=== PATIENT | male | born 1975 | race Caucasian/White ===

== ENCOUNTER 2022-07-11 13:51 | Emergency (ER) | payer OTHER, SELFPAY ==
[2022-07-11 14:01] VITALS: PULSE 89; RESP 16; TEMP 36.7; O2SAT 98; BMI 37.5
--- NOTE | 2022-07-11 14:34 | CTR_ITS ---
PROCEDURE INFORMATION: Exam: CT Head Without Contrast Exam date and time: 07/11/2022 3:22 PM Age: 46 years old Clinical indication: Injury or trauma; Fall; Blunt trauma (contusions or hematomas); Injury details: Fell off ladder 5 ft. Landing on head and neck. C/O head, neck, back and leg pain x today. TECHNIQUE: Imaging protocol: Computed tomography of the head without contrast. Radiation optimization: All CT scans at this facility use at least one of these dose optimization techniques: automated exposure control; mA and/or kV adjustment per patient size (includes targeted exams where dose is matched to clinical indication); or iterative reconstruction. COMPARISON: No relevant prior studies available. RADIATION DOSE METRICS: Total DLP (mGy-cm): 1239 FINDINGS: Brain: Normal. No hemorrhage. Unremarkable white matter. No mass effect. Cerebral ventricles: No ventriculomegaly. Paranasal sinuses: Visualized sinuses are unremarkable. No fluid levels. Mastoid air cells: Visualized mastoid air cells are well aerated. Bones/joints: Unremarkable. No acute fracture. Soft tissues: Unremarkable. CT/CT head wo con* [id number] IMPRESSION: No acute intracranial abnormality.
--- NOTE | 2022-07-11 14:34 | CTR_ITS ---
PROCEDURE INFORMATION: Exam: CT Lumbar Spine Without Contrast Exam date and time: 07/11/2022 3:22 PM Age: 46 years old Clinical indication: Injury or trauma; Fall; Blunt trauma (contusions or hematomas); Additional info: Fall from ladder TECHNIQUE: Imaging protocol: Computed tomography of the lumbar spine without contrast. Radiation optimization: All CT scans at this facility use at least one of these dose optimization techniques: automated exposure control; mA and/or kV adjustment per patient size (includes targeted exams where dose is matched to clinical indication); or iterative reconstruction. COMPARISON: No relevant prior studies available. RADIATION DOSE METRICS: Total DLP (mGy-cm): 1132.4 FINDINGS: Bones/joints: Nondisplaced fracture of the right transverse process of L3. No additional fractures. Normal alignment. No significant disc protrusion. No severe spinal canal stenosis. Soft tissues: Unremarkable. CT/CT lumbar spine wo con* [id number] IMPRESSION: Nondisplaced fracture of the right transverse process of L3.
--- NOTE | 2022-07-11 14:34 | CTR_ITS ---
PROCEDURE INFORMATION: Exam: CT Cervical Spine Without Contrast Exam date and time: 07/11/2022 3:22 PM Age: 46 years old Clinical indication: Injury or trauma; Fall; Blunt trauma; Additional info: Fall off of ladder TECHNIQUE: Imaging protocol: Computed tomography of the cervical spine without contrast. Radiation optimization: All CT scans at this facility use at least one of these dose optimization techniques: automated exposure control; mA and/or kV adjustment per patient size (includes targeted exams where dose is matched to clinical indication); or iterative reconstruction. COMPARISON: No relevant prior studies available. RADIATION DOSE METRICS: Total DLP (mGy-cm): 310.2 FINDINGS: Bones/joints: No acute fracture. Normal alignment. No significant disc protrusion. No severe spinal canal stenosis. Lungs: Lung apices are normal. Soft tissues: Unremarkable. CT/CT cervical spin wo con* [id number] IMPRESSION: No acute findings.
--- NOTE | 2022-07-11 14:34 | CTR_ITS ---
PROCEDURE INFORMATION: Exam: CT Thoracic Spine Without Contrast Exam date and time: 07/11/2022 3:22 PM Age: 46 years old Clinical indication: Injury or trauma; Fall; Blunt trauma (contusions or hematomas) TECHNIQUE: Imaging protocol: Computed tomography of the thoracic spine without contrast. Radiation optimization: All CT scans at this facility use at least one of these dose optimization techniques: automated exposure control; mA and/or kV adjustment per patient size (includes targeted exams where dose is matched to clinical indication); or iterative reconstruction. COMPARISON: No relevant prior studies available. RADIATION DOSE METRICS: Total DLP (mGy-cm): 1398.3 FINDINGS: Bones/joints: No acute fracture. Normal alignment. No significant disc protrusion. No severe spinal canal stenosis. Soft tissues: Unremarkable. CT/CT thoracic spin wo con* [id number] IMPRESSION: No acute findings.
--- NOTE | 2022-07-11 15:34 | CTR_ITS ---
PROCEDURE INFORMATION: Exam: CT Abdomen And Pelvis With Contrast Exam date and time: 07/11/2022 4:11 PM Age: 46 years old Clinical indication: Injury or trauma; Fall; Blunt; Abdominal wall; Additional info: Trauma fell from ladder TECHNIQUE: Imaging protocol: Computed tomography of the abdomen and pelvis with contrast. Radiation optimization: All CT scans at this facility use at least one of these dose optimization techniques: automated exposure control; mA and/or kV adjustment per patient size (includes targeted exams where dose is matched to clinical indication); or iterative reconstruction. Contrast material: OMNIPAQUE 350; Contrast volume: 95 ml; Contrast route: INTRAVENOUS (IV); COMPARISON: CT lumbar spine wo con* [id number] 07/11/2022 3:22 PM RADIATION DOSE METRICS: Total DLP (mGy-cm): 1157.63 FINDINGS: Liver: Normal. No mass. Gallbladder and bile ducts: Normal. No calcified stones. No ductal dilation. Pancreas: Normal. No ductal dilation. Spleen: Normal. No splenomegaly. Adrenal glands: Normal. No mass. Kidneys and ureters: Simple appearing 5 cm cyst noted in the upper pole of the right kidney. A few additional subcentimeter cysts noted in both kidneys. No hydronephrosis. Stomach and bowel: Unremarkable. No obstruction. No mucosal thickening. Appendix: No evidence of appendicitis. Intraperitoneal space: Unremarkable. No free air. No significant fluid collection. Vasculature: Unremarkable. No abdominal aortic aneurysm. Lymph nodes: Unremarkable. No enlarged lymph nodes. Urinary bladder: Unremarkable as visualized. Reproductive: Unremarkable as visualized. Bones/joints: Nondisplaced fracture of the right transverse process of L3. No additional fractures. Soft tissues: Unremarkable. CT/CT abdomen pelvis w con* [id number] IMPRESSION: 1. No acute traumatic intra-abdominal findings. 2. Nondisplaced fracture of the right transverse process of L3. COMMENTS: Consistent with the [employer]'s Incidental Findings Committee white paper (J Am Susan Radiol 2018): Any incidental renal lesion less than 1 cm or classified as too small to characterize, or any incidental cystic renal lesion characterized as simple-appearing, is likely benign. No follow-up imaging is recommended for these lesions per consensus recommendations based on imaging criteria.
[2022-07-11 16:02] LABS: Add Urine Microscopic? YES; Bilirubin Urine Neg (Negative); Blood Urine 3+ (Negative); Glucose Urine UA Norm (Normal); Ketones Urine 1+ (Negative); Leukocyte Esterase Urine Negative (Negative); Nitrate Urine Negative (Negative); Protein Urine Neg (Negative); Specific Gravity, Urine 1.025 (1.005-1.030); Urine Appearance Clear (CLEAR); Urine Color Yellow (Yellow); Urobilinogen Urine Norm (Negative); pH Urine 5 (5-7)
[2022-07-11 16:16] LABS: Add Urine Culture? No; Bacteria Urine TRACE /hpf; RBC Urine 50-80 /hpf (0-2); Squamous Epithelial Cell Urine 0-4 /hpf (0-5)
[2022-07-11] MEDS: iohexol 350 mg/mL 100 mL Btl IV (16:16)
[2022-07-11 16:48] LABS: Basophils # 0.1 10^3/uL (0.0-0.1); Basophils % 0.6 %; Eosinophils # 0.1 10^3/uL (0.0-0.8); Eosinophils % 1.2 %; Hematocrit 44.9 % (42.0-52.0); Hemoglobin 14.8 g/dL (11.7-16.6); Lymphocytes # 1.3 10^3/uL (0.8-4.8); Lymphocytes % 15.1 %; Mean Corpuscular Hemoglobin 29.4 pg (28.0-34.0); Mean Corpuscular Volume 89.3 fl (80-94); Mean Platelet Volume 11.6 fL (7.4-10.4); Monocytes # 0.6 10^3/uL (0.2-0.9); Monocytes % 6.7 %; Neutrophils # 6.38 10^3/uL (1.8-7.7); Neutrophils % 76.2 %; Nucleated Red Blood Cells % 0 %; Platelet Count 229 10^3/cmm (130-400); Red Blood Count 5.03 10^6/uL (4.1-5.3); Red Cell Distribution Width 13.1 % (12.1-15.1); White Blood Count 8.4 10^3/uL (4.0-10.0)
[2022-07-11 17:00] VITALS: BP 152/90; PULSE 71; RESP 17; O2SAT 97
[2022-07-11 17:12] LABS: Alanine Aminotransferase 23 U/L (0-41); Albumin Level 4.5 g/dL (3.5-5.2); Alkaline Phosphatase 65 U/L (40-130); Anion Gap 13.3 (5-19); Aspartate Amino Transferase 18 U/L (0-40); Blood Urea Nitrogen 13 mg/dL (6-20); Calcium 9.2 mg/dL (8.5-10.5); Carbon Dioxide 25 mmol/L (22-29); Chloride 104 mmol/L (98-107); Globulin 2.6 g/dL (1.3-4.6); Glucose 86 mg/dL (65-115); Osmolality Calculated 285 mOsm/kg (285-295); Potassium 4.3 mmol/L (3.5-5.1); Sodium 138 mmol/L (136-145); Total Bilirubin 0.3 mg/dL (0.15-1.2); Total Protein 7.1 g/dL (6.6-8.7)
--- NOTE | 2022-07-11 17:54 | ED_ITS ---
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 Pt denies any LOC and patient is not on blood thinners. Pt ambulated in to triage without difficulty. pt denies any loss of bowel or bladder. Pt denies any numbness or tingling. Pt denies any abd pain. Associated symptoms-after fall: Denies abdominal pain, chest pain, confusion, difficulty walking, hematuria, lightheadedness, neck pain or vertigo Review of Systems Const: Denies: fever(s), chills, body aches, change in appetite, change in weight, fatigue, malaise or diaphoresis Eyes: Denies: change in vision, blurry vision, blind spots, photophobia, eye discomfort, eye discharge, eye redness, floaters or seeing flashes ENMT: Denies: throat pain, uvular edema, enlarged tonsils, odynophagia, hoarseness, mouth pain, swelling of lips/tongue, oral sores, bleeding gums, dental pain, dry mouth, ear or mastoid pain, ear discharge, change in hearing, tinnitus, disequilibrium, nasal discharge, nasal congestion, post nasal drip or sinus pain Card: Denies: chest pain, palpitations, irregular heart rhythm, edema, swelling of feet/ankles, lightheadedness, syncope, pre-syncope, dyspnea on exertion, orthopnea, leg pain with exertion or acrocyanosis Resp: Denies: dyspnea, productive cough, non-productive cough, wheezing, stridor, pain on inspiration, change in phlegm color, hemoptysis or chest congestion GI: Denies: abdominal pain, nausea, vomiting, hematemesis, dysphagia, diarrhea, constipation, GI cramping, change in bowel habits or rectal pain : Denies: dysuria, urinary frequency, urinary urgency, urinary hesitancy or hematuria Musc: Denies: neck pain, extremity pain, extremity swelling, joint pain, joint swelling, joint redness, joint warmth or deformity Skin/Breast: Denies: rash, pruritus, erythema, sores, new lesions, changes in skin color or dry skin Neuro: Denies: numbness in extremities, weakness in extremities, sensory changes, lack of coordination, difficulty walking, frequent falls, dizziness, vertigo, confusion, behavioral changes, Slurred speech present, difficulty communicating thoughts or seizure-like activity Psych: Denies: anxiety, depression, suicidal ideation or homicidal ideation Endo: Denies: polyuria, polydipsia, tired all the time, cold intolerance, excessive sweating, flushing, hot flashes or heat intolerance Cristopher/Lymph: Denies: easy bruising, easy bleeding, petechiae, purpura, enlarged lymph nodes or tender lymph nodes All/Imm: Denies: urticaria, throat swelling, tongue swelling, facial swelling, acute wheezing or itchy eyes Physical Exam Const: COMMON NORMALS: no acute distress, patient oriented x3, healthy appearing, alert and well nourished GENERAL APPEARANCE: cooperative, c omfortable, well kempt and well developed; not ill appearing ORIENTATION/CONSCIOUSNESS: Yes awake, Yes oriented to person, Yes oriented to place and Yes oriented to time HENMT: COMMON NORMALS: normocephalic, atraumatic, hearing grossly normal bilaterally, external ears normal, EAC's normal, TM's normal bilaterally, Normal external nose present, Normal nasal mucous membranes and turbinates present and moist oral mucous membranes HEAD & SCALP: normal to inspection, normocephalic and atraumatic FACE & SINUS: normal facial exam, sinuses nontender and face symmetric NOSE: Normal external nose present, Normal nares present, Normal nasal mucous membranes and turbinates present, No nasal discharge present and Abnormal external nose present EXTERNAL EAR: Yes external ears normal and Yes mastoids normal EXTERNAL AUDITORY CANAL: EAC's normal TYMPANIC MEMBRANE: TM's normal bilaterally MOUTH: Normal oral and palatal mucosa present, lip normal, tongue normal and Normal salivary glands and ducts present THROAT: no uvular edema Eye: COMMON NORMALS: Equal, round and reactive pupils present, EOMs intact bilaterally, conjunctivae normal, no scleral icterus and no papilledema GENERAL EYE: appearance normal, both eyes and all related structures EYELID: eyelids normal CONJUNCTIVA: Yes conjunctivae normal SCLERA: sclerae normal CORNEA: Yes corneas normal PUPIL: Yes Equal, round and reactive pupils present DIRECT OPHTHALMOSCOPY: Yes no papilledema Neck/C-Spine: COMMON NORMALS: full ROM, no lymphadenopathy, supple, no meningeal signs, no JVD and Thyroid normal GENERAL: Yes normal visual inspection and Yes trachea midline THYROID: Thyroid normal CERVICAL SPINE: Yes cervical ROM normal Lymph: LYMPHATIC: no lymphadenopathy noted and no lymphedema noted Chest: COMMONS NORMALS: normal inspection of the chest and normal palpation of entire chest wall Resp: COMMON NORMALS: normal respiratory effort, No retractions, No use of accessory muscles and clear to auscultation bilaterally EFFORT & INSPECTION: Yes able to speak in complete sentences and Yes symmetric chest movement AUSCULTATION: clear to auscultation bilaterally Cardio: COMMON NORMALS: no JVD, regular rate and regular rhythm RATE: regular rate RHYTHM: regular rhythm GI: COMMON NORMALS: Normal to inspection, nondistended, normoactive bowel sounds present, Soft to palpation, non-tender, No hepatosplenomegaly present, no masses and no bruits INSPECTION: Yes normal to inspection AUSCULTATION: Yes normoactive bowel sounds PALPATION: Yes Soft to palpation and Yes No hepatosplenomegaly present PERCUSSION: normal to percussion RECTAL EXAM: Yes deferred Back/Pelvis: COMMON NORMALS: thoracic and lumbar spine normal to inspection, no thoracic nor lumbar tenderness, thoraco-lumbar ROM normal and straight leg raise negative bilaterally THORACIC SPINE/UPPER BACK: Yes normal to inspection LUMBAR SPINE/LOWER BACK: Yes normal to inspection Extremity: COMMON NORMALS: normal to inspection, full ROM and capillary refill normal GENERAL: Yes normal exam except as noted Neuro: COMMON NORMALS: patient oriented x3, CN's II-XII intact bilaterally, moves all extremities, no focal motor deficits, no sensory deficits noted, deep tendon reflexes 2+ bilaterally and gait normal SENSORIUM/ORIENTATION: Yes alert, Yes oriented to person, Yes oriented to place and Yes oriented to time MENINGEAL SIGNS: Yes no meningeal signs CRANIAL NERVES: Yes CN normal except as noted SPEECH: speech normal GAIT: Yes Normal gait present SENSORY EXAM: Yes extremities MOTOR EXAM: 5/5 motor strength present throughout Psych: COMMON NORMALS: mental status grossly normal, Normal thought process present, cooperative, normal affect, speech normal, activity/motor behavior normal, denies hallucinations, denies homicidal ideation and denies suicidal ideation APPEARANCE: Yes grossly normal and Yes well kempt ATTITUDE: Yes calm ACTIVITY/MOTOR BEHAVIOR: Yes appropriate eye contact SPEECH: Yes normal speech THOUGHT PROCESS: Normal thought process present THOUGHT CONTENT: Yes Normal thought content present ATTENTION/CONCENTRATION: Yes attention grossly intact MEMORY/COGNITION: Yes memory grossly intact INSIGHT: Good insight present (Psych) JUDGEMENT: Good judgement present (Psych) Skin: COMMON NORMALS: no rashes or lesions noted, no wounds, turgor normal, no jaundice, no petechiae and no mottling GENERAL SKIN EXAM: no rashes or lesion s noted and turgor normal Course Vital Signs: Vital signs: Vital Signs Temperature 98.0 F 07/11/22 14:01 Pulse Rate 71 07/11/22 17:00 Respiratory Rate 17 07/11/22 17:00 Blood Pressure 152/90 07/11/22 17:00 Pulse Oximetry 97 07/11/22 17:00 Oxygen Delivery Me thod 07/11/22 17:00 MDM - Fall Medical Decision Making Patient is well appearning non toxic and in no acute distress. 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 Pt denies any LOC and patient is not on blood thinners. Pt ambulated in to triage without difficulty. pt denies any loss of bowel or bladder. Pt denies any numbness or tingling. Pt denies any abd pain. Pt denies any cervical spine pain. CT lumbar spine reveals a transverse process fracture to endpalte of t4. I recommened TLSO for patient he does not want this. I will refer patient to Dr. Zamarripa but patient states he does not want this. Pt states he feels much improved after just resting here. CT abd/pelvis, cervical spine and head are negative for any acute fidnings. Pt did have blood in urine CT abd/pelvis negative for any acute findings. Lab Data : 07/11/22 16:37 07/11/22 16:37 Radiology Impressions Cervical Spine CT 07/11/22 14:34 IMPRESSION: No acute findings. Head CT 07/11/22 14:34 IMPRESSION: No acute intracranial abnormality. Lumbar Spine CT 07/11/22 14:34 IMPRESSION: Nondisplaced fracture of the right transverse process of L3. Thoracic Spine CT 07/11/22 14:34 IMPRESSION: No acute findings. Abdomen/Pelvis CT 07/11/22 15:34 IMPRESSION: 1. No acute traumatic intra-abdominal findings. 2. Nondisplaced fracture of the right transverse process of L3. COMMENTS: Consistent with the [employer]'s Incidental Findings Committee white paper (J Am Susan Radiol 2018): Any incidental renal lesion less than 1 cm or classified as too small to characterize, or any incidental cystic renal lesion characterized as simple-appearing, is likely benign. No follow-up imaging is recommended for these lesions per consensus recommendations based on imaging criteria. Laboratory Results WBC 8.4 10^3/uL (4.0-10.0) 07/11/22 16:37 RBC 5.03 10^6/uL (4.1-5.3) 07/11/22 16:37 Hgb 14.8 g/dL (11.7-16.6) 07/11/22 16:37 Hct 44.9 % (42.0-52.0) 07/11/22 16:37 MCV 89.3 fl (80-94) 07/11/22 16:37 MCH 29.4 pg (28.0-34.0) 07/11/22 16:37 MCHC 33.0 g/dL (30.0-36.0) 07/11/22 16:37 RDW 13.1 % (12.1-15.1) 07/11/22 16:37 Plt Count 229 10^3/cmm (130-400) 07/11/22 16:37 MPV 11.6 fL (7.4-10.4) H 07/11/22 16:37 Neut % (Auto) 76.2 % 07/11/22 16:37 Lymph % (Auto) 15.1 % 07/11/22 16:37 [place] % (Auto) 6.7 % 07/11/22 16:37 Eos % (Auto) 1.2 % 07/11/22 16:37 Baso % (Auto) 0.6 % 07/11/22 16:37 Neut # (Auto) 6.38 10^3/uL (1.8-7.7) 07/11/22 16:37 Lymph # (Auto) 1.3 10^3/uL (0.8-4.8) 07/11/22 16:37 [place] # (Auto) 0.6 10^3/uL (0.2-0.9) 07/11/22 16:37 Eos # (Auto) 0.1 10^3/uL (0.0-0.8) 07/11/22 16:37 Baso # (Auto) 0.1 10^3/uL (0.0-0.1) 07/11/22 16:37 Nucleated RBC % (auto) 0 % 07/11/22 16:37 Nucleated RBCs # 0.0 /100WBC 07/11/22 16:37 Sodium 138 mmol/L (136-145) 07/11/22 16:37 Potassium 4.3 mmol/L (3.5-5.1) 07/11/22 16:37 Chloride 104 mmol/L (98-107) 07/11/22 16:37 Carbon Dioxide 25 mmol/L (22-29) 07/11/22 16:37 Anion Gap 13.3 (5-19) 07/11/22 16:37 BUN 13 mg/dL (6-20) 07/11/22 16:37 Creatinine 0.7 mg/dL (0.7-1.2) 07/11/22 16:37 GFR Calculation 122.0 mL/min (90-130) 07/11/22 16:37 Glucose 86 mg/dL (65-115) 07/11/22 16:37 Calculated Osmolality 285 mOsm/kg (285-295) 07/11/22 16:37 Calcium 9.2 mg/dL (8.5-10.5) 07/11/22 16:37 Total Bilirubin 0.3 mg/dL (0.15-1.2) 07/11/22 16:37 AST 18 U/L (0-40) 07/11/22 16:37 ALT 23 U/L (0-41) 07/11/22 16:37 Alkaline Phosphatase 65 U/L (40-130) 07/11/22 16:37 Total Protein 7.1 g/dL (6.6-8.7) 07/11/22 16:37 Albumin 4.5 g/dL (3.5-5.2) 07/11/22 16:37 Globulin 2.6 g/dL (1.3-4.6) 07/11/22 16:37 Urine Color Yellow (Yellow) 07/11/22 15:24 Urine Appearance Clear (CLEAR) 07/11/22 15:24 Urine pH 5 (5-7) 07/11/22 15:24 Ur Specific [place] 1.025 (1.005-1.030) 07/11/22 15:24 Urine Protein Neg (Negative) 07/11/22 15:24 Urine Glucose (UA) Norm (Normal) 07/11/22 15:24 Urine Ketones 1+ (Negative) H 07/11/22 15:24 Urine Blood 3+ (Negative) H 07/11/22 15:24 Urine Nitrate Negative (Negative) 07/11/22 15:24 Urine Bilirubin Neg (Negative) 07/11/22 15:24 Urine Urobilinogen Norm mg/dL (Negative) 07/11/22 15:24 Ur Leukocyte Esterase Negative (Negative) 07/11/22 15:24 Urine RBC 50-80 /hpf (0-2) H 07/11/22 15:24 Urine WBC None /hpf (0-5) 07/11/22 15:24 Ur Squamous Epith Cells 0-4 /hpf (0-5) H 07/11/22 15:24 Amorphous Sediment Not Reportable 07/11/22 15:24 Urine Bacteria Trace /hpf (NONE) 07/11/22 15:24 Discharge Plan Discharge Condition: Stable Referrals: Stephan Escamilla DO [Primary Care Provider] - Coding Level of Care Code ED Netting Weaver for Kaileyg Viet
== END 2022-07-11 18:17 | disposition home or self-care (01) ==
PROVIDERS: Emergency Provider Registered Nurse; PCP Internal Medicine
DX: M54.9 Dorsalgia, unspecified (principal); R10.9 Unspecified abdominal pain; W11.XXXA Fall on and from ladder, initial encounter
CPT/HCPCS: 36415; 70450; 72125; 72128; 72131; 74177; 80053; 81001; 85025; 99285; Q9967

== ENCOUNTER 2022-12-25 10:56 | Outpatient (CLI) | payer OTHER, SELFPAY ==
--- NOTE | 2022-12-25 12:25 | MR_ITS ---
WS: [id number] MRI CERVICAL SPINE NONCONTRAST TECHNIQUE: Sagittal T1, T2 and STIR imaging. Axial T2, gradient, and fiesta imaging. CLINICAL INFORMATION: CONTUSION OF THE LOWER BACK COMPARISON: None. FINDINGS: Straightening of the normal cervical lordosis. Central disc osteophyte protrusion C6-C7 with moderate central canal stenosis. Tiny central protrusion C7-T1 with mild central canal stenosis and slight in dentation on cervical cord. C2-C3: Mild facet arthropathy. Mild RIGHT and no significant LEFT foraminal narrowing. Spinal canal i s patent. C3-C4: Mild facet arthropathy. Mild LEFT and no RIGHT foraminal narrowing. Spinal canal is patent. C4-C5: Mild disc bulging with osteophytic ridging. Mild RIGHT and no LEFT foraminal narrowing. Mild f acet arthropathy. Slight contact of the RIGHT ventral cervical cord. C5-C6: Mild disc osteophyte complex with endplate ridging. Moderate bilateral bony foraminal narrowin g. Mild central canal stenosis. Mild facet arthropathy. Uncovertebral joint hypertrophy. C6-C7: Disc osteophyte complex with central protrusion and indentation on cervical cord. Moderate emanuel tral canal stenosis. Severe RIGHT and moderate LEFT bony foraminal narrowing. C7-T1: Small central disc protrusion with slight craniocaudal extension of disc material. Slight cont act of the cervical cord. Mild central canal stenosis. Mild to moderate LEFT and no significant RIGHT foraminal narrowing. Visualized brain stem structures: Normal. Prevertebral soft tissues: Normal. MR/MR cervical spin wo con* [id number] IMPRESSION: 1. Straightening of the normal cervical lordosis. Cord signal is normal. 2. Mild central canal stenosis C5-C6 and C7-T1. 3. Moderate central canal stenosis C6-C7 with disc osteophyte protrusion with indentation and slight flattening of the cervical cord. 4. Severe RIGHT C6-C7 bony foraminal narrowing. 5. Moderate bilateral bony foraminal narrowing C5-C6 and LEFT C6-C7. Mild to m oderate LEFT C7-T1 bony foraminal narrowing.
--- NOTE | 2022-12-25 13:25 | XR_ITS ---
WS: [id number] EYE TECHNIQUE: 2 views of the skull CLINICAL INFORMATION: PRE MRI ORBITS COMPARISON: None. FINDINGS: No radiopaque foreign bodies. XR/XR eye foreign body [id number] IMPRESSION: No radiopaque foreign bodies.
== END 2022-12-25 10:57 | disposition home or self-care (01) ==
PROVIDERS: PCP Internal Medicine; Visit Provider Family Medicine
DX: S30.0XXA Contusion of lower back and pelvis, initial encounter (principal); T15.92XA Foreign body on external eye, part unspecified, left eye, initial encounter; T15.91XA Foreign body on external eye, part unspecified, right eye, initial encounter; X58.XXXA Exposure to other specified factors, initial encounter
CPT/HCPCS: 70030; 72141

== ENCOUNTER 2025-05-22 07:26 | Emergency (ER) | payer OTHER, SELFPAY ==
--- OUTSIDE RECORDS SUMMARY | 2013-12-27 05:11 | XMS_ITS | Continuity of Care Document ---
Author Organization [facility] Address [address] [place] [address] Phone Care Team Providers Care Insurance Premium Auditor Name Role Phone Beth Kairmi Unavailable Unavailable Allergies, Adverse Reactions, Alerts Substance Reaction Status Criticality ibuprofen Nausea Active No Information Medications Medication Instructions Dosage Effective Dates (start - stop) Status Comments Concerta 54 mg tablet,extended release take 1 tablet (54MG) by oral route every day in the morning 54 MG - Active must last 28 days triamcinolone acetonide 0.5 % Topical Cream apply by topical route 2 times every day a thin layer to the affected area(s) 0.00 - Active pravastatin 20 mg tablet take 1 tablet (20MG) by oral route every day at bedtime 20 MG - Active Procedures Procedure Date Offic/outpt E&m Estab [facility] [place] [facility] [place] [facility] No Charge Visit Offic/outpt E&m Estab Low[facility] [place] 4 Offic/outpt E&m Estab Low-[facility] [place] 4 X-RAY EXAM OF RIBS 2 VIEWS Offic/outpt E&m Estab Low-[facility] [place] 3 Offic/outpt E&m Estab [facility] [place] 3 Offic/outpt E&m Estab Mod-hi 2 13 Routine Venipunct/finger/heel 3 Preven Meds E&m Estab Pt; 18-3 Lalit-21-20 13 Preven Meds E&m Estab Pt; 13 Routine Venipunct/finger/heel 3 Offic/outpt E&m New Mod Sever 2 Advance Directives Directive Yes / No Effective Date File Name No Information Encounters Encounter Description Practice Location Reason(s) For Visit Diagnoses Date Provider , [address], [place], [place], [id number], [place] tel: [phone] [facility] No Information Rian Campos. [address], [place], [place], [id number] , [place]. tel: [phone] Offic/outpt E&m Estab Lowmod , [address], [place], [place], [id number], [place] tel: [phone] [facility] medication refill / ADHD (chief complaint) Attn Deficit W Hyperact [facility] Alexander. [address], [place], [place], [id number] , [place]. tel: [phone] No Charge Visit , [address], [place], [place], [id number], [place] tel: [phone] [facility] No Information Newman PAC José. [address], [place], [place], [id number] , [place]. tel: [phone] Offic/outpt E&m Estab Low-mod , [address], [place], [place], [id number], [place] tel: [phone] [facility] lump (chief complaint)ab dominal pain (chief complaint)me dicaton management (chief complaint) Attn Deficit W HyperactLump Newman PAC José. [address], [place], [place], [id number] , [place]. tel: [phone] Offic/outpt E&m Estab Low-mod , [address], [place], [place], [id number], [place] tel: [phone] [facility] Medication Refills (chief complaint) Attn Deficit W HyperactObesity [facility] Alexander. [address], [place], [place], [id number] , [place]. tel: [phone] Offic/outpt E&m Estab Low-mod [facility], [address], [place], [id number], [place] tel: [phone] [facility] add/adhd (chief complaint)Ps oriasis (chief complaint) Attn Deficit W HyperactOther Psoriasis [facility] [place]. [address], [place], [place], [id number] , [place]. tel: [phone] Offic/outpt E&m Estab Mod-hi 2 , [address], [place], [place], [id number], [place] tel: [phone] [facility] ADHD (chief complaint) Attn Deficit W HyperactHyperlipidemia Nec/nos [facility]. [address], [place], [place], [id number] , [place]. tel: [phone] Preven Meds E&m Estab Pt; 18-3 , [address], [place], [id number], [place] tel: [phone] [facility] Preventive exam (chief complaint) ObesityRoutine Medical ExamAttn Deficit W HyperactRoutine Medical Exam [facility] [place]. [address], [place], [place], [id number] , [place]. tel: [phone] Offic/outpt E&m New Mod Sever , [address], [place], [place], [id number], [place] tel: [phone] [facility] ADD / ADHD (chief complaint)Co ugh (chief complaint) Attn Deficit W HyperactObesityCough Jaspal Munoz. [address], [place], [id number] , [place]. tel: [phone] Family History Family Member Type Diagnosis Age At Onset Brother Problem (finding) anxiety state Mother Problem (finding) anxiety state Mother Problem (finding) atrial fibrillation Mother Problem (finding) hypertension Payers Payer name Insurance type Covered constitution party ID Luiza jimenes(s) [facility] [id number] Social History Type Description Quantity Date Captured Comments Sex Male Smoking Status No Information Chief Complaint And Reason For Visit No Information Plan Of Treatment Date Type Action Status Goal H&P. Due on due Goal Diabetes Screening. Due on A due Goal H&P. Due on due Goal Diabetes Screening. Due on M due Goal Diabetes Screening. Due on F due Goal H&P. Due on due History Of Present Illness Encounter Date Complaint History Of Prese nt Illness medication refill / ADHD The sym ptoms began 2 years ago and generally lasts varies. The symptoms are reported as being moderate. The symptoms occur daily. Aggravating factors include situational stress. Relieving factors include medication. He states the symptoms are controlled. Patient is here for medication refill. He reports that he continues to do very well on his medication. No acute issues or complications here today. No HI/SI and he is able to stay on task and get his job done without major complications. lump The symptoms beg an 4 days ago. The symptoms are reported as being moderate. The symptoms occur constantly. The location is right flank/back. Aggravating factors include pressure/twisting. Relieving factors include nothing. Patient states that the lump is hard and painful (8/10). abdominal pain Onset: 3 Months. The severity of the problem is moderate. The problem has not changed. The symptoms are intermittent. The quality of the pain is dull. Aggravating factors include pressure to abdomen. Symptoms are relieved by change in position. Associated symptoms include bloating, flank pain and flatulence. medicaton management Patient is here for a refill of his medication. Medication Refills The symptoms began 30 months ago. The symptoms are reported as being mild. The symptoms occur constantly. Pt needs refills on Concerta. He is doing very well on his medication. No acute complaints here today. Instructions Date Instruction Additional Infor tianna Low fat diet Related to Obesi ty unspecified, BMI 30-39 Physical activity counseling Rel ated to Obesity unspecified, BMI 30-39 Physical activity counseling Rel ated to Obesity unspecified, BMI 30-39 Low fat diet Related to Obesi ty unspecified, BMI 30-39 Dietary counseling Related to Ob esity unspecified, BMI 30-39 Decrease caloric intake Related to Obesity unspecified, BMI 30-39 Assessments Type Assessment Date No Information
[2025-05-22 07:33] VITALS: BP 167/103; PULSE 67; RESP 20; TEMP 36.5; O2SAT 95
--- OUTSIDE RECORDS SUMMARY | 2025-05-22 07:34 | XMS_ITS | Clinical Summary ---
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 Gender Identity Not on file Sexual Orientation Not on file Plan of Treatment Health Maintenance Due Date Last Done Comments DTAP/TDAP/TD VACCINES (1 - Tdap) 1995 HEPATITIS B VACCINES (1 of 3 - 19+ 3-dose series) 06/23 COLORECTAL SCREENING 2021 Colorectal Cancer Screening 2021 FIT-DNA Q 3 years 2021 FIT/FOBT Q 1 year 2021 Flex Sig/CT Colonography Q 5 years 2021 INFLUENZA VACCINE (#1) 2025 [place] [address] Care Teams Test Equipment Mechanic Relationship Specialty Start Date End Date Stephan Escamilla DO [address] [id number] PCP - General Internal Medicine 05/14/23
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
[2025-05-22] MEDS: HYDROcodone-acetaminophen 5-325 mg Tablet 1 TAB PO (08:13)
[2025-05-22 08:30] VITALS: BP 153/107; PULSE 73; O2SAT 94
== END 2025-05-22 08:30 | disposition home or self-care (01) ==
PROVIDERS: Emergency Provider Emergency Medicine; PCP Family Medicine
DX: S39.012A Strain of muscle, fascia and tendon of lower back, initial encounter (principal); V49.9XXA Car occupant (driver) (passenger) injured in unspecified traffic accident, initial encounter
CPT/HCPCS: 72072; 99283; J9999